=== PATIENT | male | born 1960 | race Caucasian/White ===

== ENCOUNTER 2017-10-17 03:18 | Emergency (ER) | payer MEDICAID, OTHER ==
[~2017-10-17] VITALS: Ht 180.3 cm; Wt 79.0 kg
[2017-10-17] MEDS ORDERED: GUAIFENESIN 200MG/10ML SUGAR FREE UDC PO ONE (05:15)
[2017-10-17] MEDS ORDERED: ASPIRIN 325MG TABLET PO ONE (05:15)
[2017-10-17] MEDS ORDERED: LORAZEPAM 1MG TABLET PO ONE (06:45)
[2017-10-17 07:40] LABS: BASOPHILS % 1.3 % (0.0-2.0); EOSINOPHILS % 0.8 % (0.0-5.0); HEMATOCRIT. 37.8 % (42.0-52.0); HEMOGLOBIN. 13.1 g/dL (14.0-18.0); LYMPHOCYTES % 43.1 % (20.0-50.0); MEAN CORPUSCULAR HEMOGLOBIN 33.3 pg (28.0-32.0); MEAN CORPUSCULAR VOLUME 96.2 fL (80.0-94.0); MEAN PLATELET VOLUME 8.2 fl (7.4-10.4); MONOCYTES % 10.2 % (2.0-8.0); NEUTROPHILS % 44.6 % (40.0-76.0); PLATELET 225 x1000/uL (130-400); RED BLOOD CELL COUNT 3.93 mill/uL (4.7-6.1); RED CELL DISTRIBUTION WIDTH 14.1 % (11.6-14.6)
[2017-10-17 07:47] LABS: CHLORIDE 104 mEq/L (98-107)
[2017-10-17 07:51] LABS: ETHANOL BLOOD 203 mg/dL
[2017-10-17 08:50] VITALS: BP 103/59
[2017-10-17] MEDS ORDERED: CHLORDIAZEPOXIDE 25MG CAPSULE PO ONE (09:30)
== END 2017-10-17 09:37 | disposition home or self-care (01) ==
LOC: ER 03:18
DX: T51.0X1A Toxic effect of ethanol, accidental (unintentional), initial encounter (principal); R06.00 Dyspnea, unspecified; R42 Dizziness and giddiness; I45.10 Unspecified right bundle-branch block; J98.11 Atelectasis; I25.2 Old myocardial infarction; F17.200 Nicotine dependence, unspecified, uncomplicated; J44.9 Chronic obstructive pulmonary disease, unspecified; Z85.9 Personal history of malignant neoplasm, unspecified; Z88.8 Allergy status to other drugs, medicaments and biological substances; Y92.488 Other paved roadways as the place of occurrence of the external cause
CPT/HCPCS: 36415; 71045; 80053; 85025; 87804; 93005; 99285; G0482

== ENCOUNTER 2021-09-02 08:45 | Emergency (ER) | payer MEDICARE, MEDICAID ==
[~2021-09-02] VITALS: Ht 175.3 cm; Wt 72.0 kg
[2021-09-02 08:55] VITALS: BP 112/78
[2021-09-02] MEDS ORDERED: ACETAMINOPHEN 325MG TABLET PO ONE (09:15)
== END 2021-09-02 09:24 | disposition left against medical advice (07) ==
LOC: ER 08:45
DX: G89.29 Other chronic pain (principal); M54.2 Cervicalgia; E11.9 Type 2 diabetes mellitus without complications; Z88.8 Allergy status to other drugs, medicaments and biological substances
CPT/HCPCS: 99283